=== PATIENT | female | born 1950 | race Caucasian/White ===

== ENCOUNTER 2017-06-27 15:14 | Emergency (ER) | payer OTHER ==
[~2017-06-27] VITALS: Ht 162.6 cm; Wt 84.5 kg
[2017-06-27 15:39] VITALS: BP 173/94; PULSE 91; RESP 15; O2SAT 95
--- NOTE | 2017-06-27 15:46 | ED.REPORT ---
HPI-Chest Pain 40 and Over Date of Service Jun 27, 2017 ED Provider: HarleyAyo Erica A 67 year old female with a history of hypertension, chronic cough for 18 months and GERD is referred to the ED from Urgent Care complaining of chest pain onset this morning. The pain is midsternal radiating to her back, and has been constant since onset rated at 4/10. Nitro and four aspirin en route reduced her pain to a 2/10. The pt was fatigued yesterday then noticed the pain when she woke this morning. She became concerned when it did not ease throughout the day and when her blood pressure was measured to be higher than normal. She admits to intermittent diaphoresis and feeling like her "breathing is restricted," though she denies shortness of breath, nausea or pleuritic pain. The pt notes that she has felt this chest pain several times in the past few weeks, but dismissed it because the pain resolved on its own. The pt reports that the pain is similar to what she experienced when she was diagnosed with GERD nine years ago. She had a negative stress test at that point. Nursing Notes Stated Complaint: CHEST PAIN Chief Complaint: Chest Pain Nursing Notes Reviewed: Yes Allergies: Coded Allergies: No Known Allergies (Unverified , 06/27/17) General Time Seen by MD: 15:45 Chief Complaint Chest pain Hx Obtained From: Patient, EMS Arrived By: Ambulance Sudden in Onset?: Yes Onset Occurred: 5 - 8 hours ago Symptom Duration: Since onset Recent Healthcare: No recent hospitalization Similar Sx Previous: Yes Past Medical History Past Medical History hypertension chronic cough since 2016 GERD Past Surgical History none reported Family History father polycythemia Smoking History Never Smoker Ambulatory Status Independent Review of Systems Review of Systems Note: hypertension Constitutional: Reports: Fatigue Respiratory: Denies: Non-productive cough, Pleuritic pain, Shortness of breath Cardiovascular: Reports: Chest pain GI: Denies: Abdominal pain, Nausea, Vomiting Musculoskeletal: Reports: Back pain, Denies: Neck pain Skin: Reports Diaphoresis, Denies Rash Complete sys rev & neg: except as marked. Physical Exam Initial Vital Signs Vital Signs (First) Date Time Temp Pulse Resp B/P Pulse Ox O2 Delivery O2 Flow Rate FiO2 06/27/17 15:39 37.1 91 15 173/94 95 Room Air Initial VS: Reviewed General/Constitutional: Awake, Alert Respiratory / Chest: Atraumatic, Breath sounds NL, Breath sounds = bilat, No respiratory distress Cardiovascular: Heart rate NL, Regular rhythm, Heart sounds NL, No murmurs Abdomen: Atraumatic, Soft, Non-tender Neck: Atraumatic, Supple, Full range of motion Back: Atraumatic, Full range of motion Lower Extremity / Pelvis / MS: Atraumatic, Full range of motion, No edema Skin: Atraumatic, Color NL, No rash, Warm, Dry Neurologic: Oriented X3, Speech NL, No motor deficits, No sensory deficits Psychiatric: Affect NL, Mood NL Head / Eyes: Atraumatic, Normocephalic, PERRL, EOMI ENT: Atraumatic, Airway patent, Mucous membranes moist Upper Extremity / MS: Atraumatic, Full range of motion Interpretation & Diagnostics Lab Results Interpretation Result Diagram: 06/27/17 1603 06/27/17 1603 Test 06/27/17 16:03 White Blood Count 6.6th/mm3 (3.8-10.1) Red Blood Count 4.71mil/mm3 (3.90-5.20) Hemoglobin 14.0g/dL (12.0-15.6) Hematocrit 41.2% (35.0-46.0) Mean Corpuscular Volume 87.5fL (81-100) Mean Corpuscular Hemoglobin 29.7pg (27.0-35.0) Mean Corpuscular Hemoglobin Concent 34.0% (32.0-37.0) Red Cell Distribution Width 12.6% (12.3-15.4) Platelet Count 239bil/L (150-400) Neutrophils (%) (Auto) 55.3% (40-74) Lymphocytes (%) (Auto) 28.7% (14-46) Monocytes (%) (Auto) 11.8% (4-12) Eosinophils (%) (Auto) 2.7% (0-5) Basophils (%) (Auto) 0.6% (0-3) D-Dimer < 0.50mg/L FEU (<0.50) Sodium Level 140mEq/L (134-144) Potassium Level 3.4mEq/L (3.5-5.2) Chloride Level 102mEq/L (97-108) Carbon Dioxide Level 22mmol/L (18-29) Blood Urea Nitrogen 17mg/dL (8-27) Creatinine 0.75mg/dL (0.57-1.00) Estimat Glomerular Filtration Rate 111mL/min (>59) Glucose Level 136mg/dL (60-99) Calcium Level 9.6mg/dL (8.5-10.1) Magnesium Level 2.0mg/dL (1.6-2.6) Total Bilirubin 0.3mg/dL (0.0-1.2) Aspartate Amino Transf (AST/SGOT) 20U/L (0-50) Alanine Aminotransferase (ALT/SGPT) 13U/L (0-32) Alkaline Phosphatase 91U/L (25-165) Troponin T < 0.010ug/L (0.0-0.011) Total Protein 7.5g/dL (6.4-8.4) Albumin 4.4g/dL (3.4-5.0) ECG Interpretation ECG Interpretation: normal sinus rhythm with a rate of 84 left atrial enlargement left axis deviation no ST changes Time: 16:02 Interpreted by: ED physician X-Ray Chest Interpretation Chest Xray Interpretation: IMPRESSION: No acute cardiopulmonary findings. Dictated by: Denita Alvarez M.D. on 06/27/2017 at 16:14 Approved by: Denita Alvarez M.D. on 06/27/2017 at 16:14 Interpretation / Wet Read by: Interpret - Radiologist Re-Eval/Medical Decision Med Decision/Clinical Course 67-year-old female with no identifiable risk factors other than hypertension presents with chest pain that she awakened with this morning that radiates to her mid back. D-dimer was not elevated which is reassuring for aortic dissection and pulmonary embolus in the setting of a low well score which she does have. Her cardiac enzymes are normal after more than 8 hours of pain. Her pain improved somewhat with nitroglycerin which could indicate esophageal spasm which she does have a history of. Her chest x-ray was unremarkable. She will be following up with her PCP later this week and I recommended consideration of a stress test. She also has discussed potentially having an EGD with her PCP which may be appropriate. Source of Hx: Old records Time of Eval: 17:32 Patient Status: Condition improved Re-Evaluation/Progress Note: Pt rechecked, who is comfortable. Lab and radiology results are discussed. The diagnosis and plan for discharge are discussed. The pt understands and agrees with the plan. All questions are addressed at this time. Counseled Regarding: Diagnosis, Lab results, Need for follow-up, When/why to return to ED Discharge & Departure Primary Impression: Chest pain Chest pain type: unspecified Qualified Code: R07.9 - Chest pain, unspecified Additional Impressions: Hypertension Hypertension type: unspecified secondary hypertension Qualified Code: I15.9 - Secondary hypertension, unspecified Shortness of breath Ruled Out: Acute coronary syndrome, Pulmonary embolism, Pneumonia Disposition: Home Discharge Condition All VS Reviewed: Yes Condition: Stable Patient Instructions: Chest Pain (ED), Hypertension (ED), Shortness of Breath ( ED) Additional Instructions: Thank you for entrusting us with your care. Your evaluation was reassuring. Call your primary care physician in the morning to arrange a follow up appointment in the next several days for further evaluation. Another stress test may be required. Return to the emergency department if you develop any new or worsening symptoms. Referrals: Mili Machado (PCP) Earl Gross MD Scribe Attestation Portions of this note were transcribed by Julien Muñoz. I, Dr. Souza personally performed the history, physical exam and medical decision-making; I reviewed and confirmed the accuracy of the information in the transcribed note. copies to: Mili Machado; Earl Gross MD, Gary R DO Jun 27, 2017 15:45 JULIEN MUÑOZ Jun 27, 2017 16:00
[2017-06-27] MEDS ORDERED: Nitroglycerin 2% 1 Gm Ointment TOPICAL ONE (16:05)
[2017-06-27 16:08] LABS: BASOPHILS % (AUTO) 0.6 % (0-3); EOSINOPHILS % (AUTO) 2.7 % (0-5); MONOCYTES % (AUTO) 11.8 % (4-12); Mean Corpuscular Hemoglobin 29.7 pg (27.0-35.0); Mean Corpuscular Volume 87.5 fL (81-100); NEUTROPHILS % (AUTO) 55.3 % (40-74); Platelet Count 239 bil/L (150-400)
--- NOTE | 2017-06-27 16:16 | DRSVH ---
PROCEDURE: X-RAY CHEST ONE VIEW, PORTABLE ([id number]) INDICATIONS: chest pain TECHNIQUE: One view of the chest was acquired. COMPARISON: None. FINDINGS: Surgical changes and devices: None. Lungs and pleura: No pleural effusions or pneumothorax. Lungs are clear. Mediastinum: Mediastinal contours appear normal. Heart size is normal. Bones and chest wall: No suspicious bony lesions. Overlying soft tissues appear unremarkable. IMPRESSION: No acute cardiopulmonary findings. Dictated by: Denita Alvarez M.D. on 06/27/2017 at 16:14 Approved by: Denita Alvarez M.D. on 06/27/2017 at 16:14
[2017-06-27 16:19] LABS: TROPONIN T < 0.010 ug/L (0.0-0.011)
[2017-06-27 17:55] VITALS: BP 149/80; PULSE 71; RESP 15; O2SAT 95
== END 2017-06-27 17:50 | disposition home or self-care (01) ==
LOC: EDBD 15:14 → SED 15:14
DX: R07.9 Chest pain, unspecified (principal); I15.9 Secondary hypertension, unspecified; R06.02 Shortness of breath